=== PATIENT | male | born 1990 | race Caucasian/White ===

== ENCOUNTER → 2021-01-31 13:02 | Outpatient (BNVA) | payer BC, SELFPAY | PROVIDERS: Visit Provider Nurse Practitioner | DX: Z20.822 Contact with and (suspected) exposure to COVID-19 (principal); J20.9 Acute bronchitis, unspecified; B34.9 Viral infection, unspecified; J02.9 Acute pharyngitis, unspecified | CPT/HCPCS: 87635; 87880; 99211 ==